=== PATIENT | male | born 1990 | race African-American/Black ===

== ENCOUNTER 2022-07-15 22:23 | Emergency (ER) | payer MEDICAID ==
[2022-07-15] MEDS ORDERED: Albuterol/Ipratropium 3.0-0.5 MG/3 ML Neb Soln NEB ONE (22:54)
[2022-07-15] MEDS ORDERED: methylPREDNISolone Sodium Succinate 125 MG/2 ML SDV IVPUSH ONE (22:55)
[2022-07-15 23:55] LABS: CORONAVIRUS COVID-19 NAA NEGATIVE (NEGATIVE); INFLUENZA A NAA NEGATIVE (NEGATIVE)
[2022-07-16 00:22] VITALS: BP 119/70; PULSE 75
== END 2022-07-16 00:20 | disposition home or self-care (01) ==
LOC: JD.ED 22:23
DX: J45.901 Unspecified asthma with (acute) exacerbation (principal); Z20.822 Contact with and (suspected) exposure to COVID-19
CPT/HCPCS: 0240U; 71046; 94640; 96374; 99285; J2930; J7620-GY

== ENCOUNTER 2023-06-01 18:40 | Emergency (ER) | payer SELFPAY ==
[2023-06-01 19:47] VITALS: BP 120/78; PULSE 88
== END 2023-06-01 19:52 | disposition home or self-care (01) ==
LOC: EDUNIT# → JD.ED 18:40
DX: S46.912A Strain of unspecified muscle, fascia and tendon at shoulder and upper arm level, left arm, initial encounter (principal); Z79.51 Long term (current) use of inhaled steroids; Z79.899 Other long term (current) drug therapy; W20.8XXA Other cause of strike by thrown, projected or falling object, initial encounter; Y93.89 Activity, other specified; Y99.0 Civilian activity done for income or pay
CPT/HCPCS: 73030-26-LT; 73030-LT; 99283